=== PATIENT | male | born 1980 | race African-American/Black ===

== ENCOUNTER 2018-12-23 18:36 | Emergency (ER) | payer SELFPAY ==
--- NOTE | 2018-12-23 19:07 | EDM.PDOC ---
ED HPI GENERAL MEDICAL PROBLEM - General Chief Complaint: ENT Problem Stated Complaint: Right facial swelling; Headache Time Seen by Provider: 12/23/18 18:39 Source of Information: Reports: Patient, Family, RN, RN Notes Reviewed History Limitations: Reports: No Limitations - History of Present Illness INITIAL COMMENTS - FREE TEXT/NARRATIVE: Patient presents to the ED at [facility] for the evaluation of right cheek swelling and right upper jaw pain with concurrent headache. Patient states his symptoms started about one week ago. He states his symptoms have progressively gotten worse. Patient states it hurts to clench his teeth together. Patient states he has percussion sensitivity. Patient states his symptoms are exacerbating a headache. Onset Date: 12/16/18 - Related Data Allergies Allergy/AdvReac Type Severity Reaction Status Date / Time No Known Allergies Allergy Verified 12/23/18 19:03 Home Meds: Home Meds Clindamycin HCl 300 mg PO TID 9 Days #27 capsule 12/23/18 [Rx] predniSONE 20 mg PO BID 5 Days #10 tab 12/23/18 [Rx] ED ROS ENT - Review of Systems Review Of Systems: See Below Constitutional: Denies: Fever, Chills HEENT: Reports: Dental Pain Respiratory: Denies: Shortness of Breath, Cough Cardiovascular: Denies: Chest Pain, Palpitations Skin: Reports: No Symptoms Neurological: Reports: Headache. Denies: Confusion, Dizziness ED EXAM, ENT - Physical Exam Exam: See Below Exam Limited By: No Limitations General Appearance: Alert, No Apparent Distress Mouth/Throat: Dental Abcess (Right upper posterior molar), Dental Pain, Dental Tenderness, Dry Mucous Membrane. No: Dental Trauma Head: Atraumatic, Normocephalic, Other (mild right cheeck swelling) Respiratory/Chest: No Respiratory Distress, Lungs Clear, Normal Breath Sounds Cardiovascular: Normal Peripheral Pulses, Regular Rate, Rhythm Neurological: Alert, Oriented Skin: Warm, Dry, Intact, Normal Color Departure - Departure Time of Disposition: 19:11 Disposition: Home, Self-Care 01 Condition: Good Clinical Impression: Dental abscess, Cheek swelling - Discharge Information *PRESCRIPTION DRUG MONITORING PROGRAM REVIEWED*: Not Applicable *COPY OF PRESCRIPTION DRUG MONITORING REPORT IN PATIENT ROBIN: Not Applicable Prescriptions: Clindamycin HCl 300 mg PO TID 9 Days #27 capsule predniSONE 20 mg PO BID 5 Days #10 tab Instructions: Preventive Dental Care, Adult, Dental Abscess Forms: ED Department Discharge Additional Instructions: 1. Stay well hydrated and rest 2. Take antibiotics for the full coarse, even if you are feeling better 3. Warm salt water gargles several times a day 4. Rinse with antiseptic mouth wash 5. Take Advil/Tylenol 6. See a dentist [facility] - Problem List Review Problem List Initiated/Reviewed/Updated: Yes - Assessment/Plan Assessment:: Dental Abscess Right cheek swelling 2/2 dental abscess Headache 2/2 dental abscess Plan: Assessment findings discussed with patient. Will start on abx therapy. Discussed warm salt water gargles. Use antiseptic mouthwash. Needs to see a dentist [facility]. FU as needed with PCP. Prednisone for swelling and pain
[2018-12-23] MEDS: Take Home: predniSONE 20 MG, 2 Tab Pack PO ONE (19:28)
[2018-12-23] MEDS: Take Home: Clindamycin HCl 150 MG Cap, 6 Cap Pack PO ONE (19:28)
== END 2018-12-23 19:32 | disposition home or self-care (01) ==
LOC: VM.ED 18:36
DX: K04.7 Periapical abscess without sinus (principal)
CPT/HCPCS: 99282-GF; 99283; A9270-GY